=== PATIENT | male | born 1945 | race Caucasian/White ===

== ENCOUNTER 2023-10-04 11:58 | Emergency (ER) | payer MEDICARE, OTHER ==
[~2023-10-04] VITALS: Ht 172.7 cm; Wt 63.5 kg
[2023-10-04] MEDS ORDERED: CARBAMIDE PEROXIDE OTIC DROP 15 ML BOTTLE ONE (12:39)
[2023-10-04] MEDS: CARBAMIDE PEROXIDE OTIC DROP 15 ML BOTTLE OT ONE (12:51)
[2023-10-04 14:40] VITALS: BP 112/83; O2SAT 96
== END 2023-10-04 14:40 | disposition home or self-care (01) ==
LOC: ER 12:00
DX: H91.92 Unspecified hearing loss, left ear (principal); E78.00 Pure hypercholesterolemia, unspecified; Z88.0 Allergy status to penicillin
CPT/HCPCS: A4606; A4663